=== PATIENT | female | born 1990 | race African-American/Black ===

== ENCOUNTER 2021-08-26 15:53 | Emergency (ER) | payer MEDICAID ==
[~2021-08-26] VITALS: Ht 167.6 cm; Wt 107.7 kg
[2021-08-26 15:56] VITALS: BP 118/76
--- NOTE | 2021-08-26 16:18 | NUR ---
LAB AT BEDSIDE
--- NOTE | 2021-08-26 16:20 | NUR ---
Mike ralph in [facility] - 08/26/21 at 1643 by ALEN ULTRASOUND AT BEDSIDE
[2021-08-26 16:22] LABS: BASOPHILS % (AUTO) 0.4 % (0.0-2.0); EOSINOPHILS # (AUTO) 0.1 K/uL (0-0.4); EOSINOPHILS % (AUTO) 1.4 % (0.0-4.0); HEMOGLOBIN 11.5 g/dL (12.0-16.0); LYMPHOCYTES # (AUTO) 1.6 K/uL (2.5-16.5); LYMPHOCYTES % (AUTO) 23.3 % (20.5-51.1); MEAN CORPUSCULAR HEMOGLOBIN 28 pg (27-31); MEAN CORPUSCULAR HGB CONC 33 g/dL (33-37); MEAN CORPUSCULAR VOLUME 85.1 fL (80-94); MONOCYTES # (AUTO) 0.4 K/uL (0.8-1.0); MONOCYTES % (AUTO) 5.2 % (1.7-9.3); NEUTROPHILS # (AUTO) 4.9 K/uL (1.8-7.7); NEUTROPHILS % (AUTO) 69.7 % (42.2-75.2); PLATELET COUNT (AUTO) 368 K/uL (140-450); RED BLOOD CELL COUNT(AUTO) 4.11 MIL/uL (4.20-5.40); RED CELL DISTRIBUTION WIDTH 15.2 % (11.6-13.7)
--- NOTE | 2021-08-26 16:22 | NUR ---
30 Y/O FEMALE BIB SELF DUE TO LOWER ABDOMINAL CRAMPING AND PAIN X3 DAYS ALONG WITH NAUSEA. PATIENTS PAIN IS 7/10. PATIENT IS CURRENTLY BUT IS UNSURE TO HOW MANY WEEKS SHE IS. MEDICAL HISTORY: DENIES NKDA
--- NOTE | 2021-08-26 16:40 | NUR ---
DR MENCHACA AT BEDSIDE EVALUATING PATIENT
[2021-08-26 17:00] LABS: APPEARANCE,URINE CLEAR (CLEAR); BILIRUBIN,URINE NEGATIVE (NEGATIVE); BLOOD, URINE NEGATIVE (NEGATIVE); COLOR,URINE YELLOW (YELLOW); LEUKOCYTE ESTERASE ,URINE NEGATIVE (NEGATIVE); NITRITE, URINE NEGATIVE (NEGATIVE); UGLUCOSE NEGATIVE (NEGATIVE)
--- NOTE | 2021-08-26 17:50 | NUR ---
The patient's care was reviewed and supervised by Ron Thrasher RN.
[2021-08-26] MEDS ORDERED: DOXY1TCP PO (18:04)
[2021-08-26 18:30] VITALS: BP 121/74
--- NOTE | 2021-08-26 18:49 | NUR ---
Patient discharged with v/s stable. Written and verbal after care instructions given and explained for Threatened Miscarriage. Patient alert, oriented and verbalized understanding of instructions. Ambulatory with steady gait. All questions addressed prior to discharge. ID band removed. Patient advised to follow up with PMD. Rx of DOXYLAMINE/PYRIDOXINE HCL given. Patient educated on indication of medication including possible reaction and side effects. Opportunity to ask questions provided and answered.
== END 2021-08-26 18:49 | disposition home or self-care (01) ==
LOC: MED 15:53
DX: O20.0 Threatened abortion (principal); O21.8 Other vomiting complicating pregnancy; Z3A.08 8 weeks gestation of pregnancy; Z79.899 Other long term (current) drug therapy; Z98.890 Other specified postprocedural states
CPT/HCPCS: 36415; 76817; 81003; 81025; 84702; 85025; 86900; 86901; 99284; Q0092

== ENCOUNTER 2021-08-27 15:49 | Emergency (ER) | payer MEDICAID ==
[~2021-08-27] VITALS: Ht 167.6 cm; Wt 105.2 kg
[~2021-08-27 15:49] MED LIST: DOXY1TCP PO
[2021-08-27 15:56] VITALS: BP 127/66
--- NOTE | 2021-08-27 16:00 | NUR ---
PATIENT WAITING OUTSIDE ER LOBBY.
--- NOTE | 2021-08-27 17:21 | NUR ---
Mike ralph in [facility] - 08/27/21 at 1722 by LUZ PT TO CHAIR Nelson
--- NOTE | 2021-08-27 17:22 | NUR ---
PATIENT AMBULATED TO BED 04.
--- NOTE | 2021-08-27 17:29 | NUR ---
urine handed to [employer] tech
[2021-08-27 17:43] LABS: BASOPHILS % (AUTO) 0.3 % (0.0-2.0); EOSINOPHILS # (AUTO) 0.1 K/uL (0-0.4); EOSINOPHILS % (AUTO) 0.9 % (0.0-4.0); HEMATOCRIT 36.1 % (36-48); HEMOGLOBIN 11.9 g/dL (12.0-16.0); LYMPHOCYTES # (AUTO) 1.4 K/uL (2.5-16.5); LYMPHOCYTES % (AUTO) 21.5 % (20.5-51.1); MEAN CORPUSCULAR HEMOGLOBIN 28 pg (27-31); MEAN CORPUSCULAR HGB CONC 33 g/dL (33-37); MEAN CORPUSCULAR VOLUME 84.2 fL (80-94); MONOCYTES # (AUTO) 0.6 K/uL (0.8-1.0); MONOCYTES % (AUTO) 8.6 % (1.7-9.3); NEUTROPHILS # (AUTO) 4.4 K/uL (1.8-7.7); NEUTROPHILS % (AUTO) 68.7 % (42.2-75.2); PLATELET COUNT (AUTO) 373 K/uL (140-450); RED BLOOD CELL COUNT(AUTO) 4.28 MIL/uL (4.20-5.40); RED CELL DISTRIBUTION WIDTH 15.4 % (11.6-13.7); WHITE BLOOD COUNT (AUTO) 6.5 K/uL (4.8-10.8)
[2021-08-27 17:46] LABS: APPEARANCE,URINE CLEAR (CLEAR); BILIRUBIN,URINE NEGATIVE (NEGATIVE); BLOOD, URINE 3+ (NEGATIVE); COLOR,URINE YELLOW (YELLOW); LEUKOCYTE ESTERASE ,URINE NEGATIVE (NEGATIVE); NITRITE, URINE NEGATIVE (NEGATIVE); UGLUCOSE NEGATIVE (NEGATIVE)
[2021-08-27 17:55] LABS: RBC,URINE 80-100 /HPF (0-5)
[2021-08-27 17:56] LABS: WBC,URINE NONE SEEN /HPF (0-5)
[2021-08-27 18:04] LABS: ALBUMIN 3.6 g/dL (3.4-5.0); ANION GAP 12.2 (8-16); CARBON DIOXIDE 25.3 mmol/L (21-32); POTASSIUM 3.5 mmol/L (3.5-5.1); TOTAL BILIRUBIN 0.3 mg/dL (0.0-1.0)
[2021-08-27 20:41] VITALS: BP 128/77
--- NOTE | 2021-08-27 20:42 | NUR ---
Patient discharged with v/s stable. Written and verbal after care instructions given and explained. Patient verbalized understanding. Ambulatory with steady gait. All questions addressed prior to discharge. Advised to follow up with PMD.
== END 2021-08-27 20:42 | disposition home or self-care (01) ==
LOC: MED 15:49
DX: O20.0 Threatened abortion (principal); Z79.899 Other long term (current) drug therapy; Z3A.01 Less than 8 weeks gestation of pregnancy
CPT/HCPCS: 36415; 76801; 80053; 81001; 81025; 84702; 85025; 86886; 86900; 86901; 99284; Q0092

== ENCOUNTER 2021-08-31 20:24 | Emergency (ER) | payer MEDICAID ==
[~2021-08-31] VITALS: Ht 167.6 cm; Wt 104.8 kg
[2021-08-31 20:35] VITALS: BP 129/71
--- NOTE | 2021-08-31 20:35 | NUR ---
30 Y/O FEMALE BIBS FROM HOME, C/O CRAMPING X1 DAY AND SPOTTING X4 DAYS. PT STATES SHE IS 5 WKS AND HAS 8/10 CRAMPING STARTING THIS MORNING. PT TOOK 1000MG TYLENOL FOR PAIN 6 HRS PRIOR TO ED ARRIVAL. +DIARRHEA AND FATIGUE. - N/V; UNLABORED BREATHING, AMBULATORY W/O ASSISTANCE, A/OX4, GCS-15. PT SEATED IN BED WITH HOB RAISED AND BED IN LOWEST POSITION WITH RAIL UP X1 DENIES PMH/RX NKA
--- NOTE | 2021-08-31 20:49 | NUR ---
URINE OBTAINED URINE PREG AND DIP DONE
[2021-08-31] MEDS ORDERED: IBUPROFEN 600 MG TAB PO ONE (21:30)
--- NOTE | 2021-08-31 21:38 | NUR ---
PT STATES PASSING CLOTS THIS AM. STATES WENT THROUGH 3 FULL PADS . ABD PAIN STILL 10/30. IBUPROFEN 800MG GIVEN.
[2021-08-31] MEDS ORDERED: IBUP-2213 PO (21:42)
[2021-08-31 21:54] VITALS: BP 129/71
== END 2021-08-31 21:54 | disposition home or self-care (01) ==
LOC: MED 20:24
DX: O03.9 Complete or unspecified spontaneous abortion without complication (principal)
CPT/HCPCS: 81002; 81025; 99282

== ENCOUNTER 2022-02-04 17:12 | Emergency (ER) | payer MEDICAID ==
[~2022-02-04] VITALS: Ht 167.6 cm; Wt 105.7 kg
[~2022-02-04 17:12] MED LIST changes: +IBUP-2213 PO
[2022-02-04 17:18] VITALS: BP 144/88
--- NOTE | 2022-02-04 17:40 | NUR ---
BIB SELF C/O 01/30 GENERALIZED ABDOMINAL PAIN, N/V/D X YESTERDAY.ABD SOFT,NO ENDERNESS. DENIES N/V/D; SKIN IS PINK/WARM/DRY; AAOX4 WITH EVEN AND STEADY GAIT; LUNGS CLEAR BL; HR EVEN AND REGULAR; PT DENIES ANY FEVER, CP, SOB, OR COUGH AT THIS TIME.
--- NOTE | 2022-02-04 18:53 | NUR ---
Dr. Jean examining patient.
--- NOTE | 2022-02-04 18:53 | NUR ---
Mike ralph in [facility] - 02/04/22 at 1854 by [facility] Patient being evaluated by DR BUSTOS at [facility].
[2022-02-04] MEDS ORDERED: NACL 0.9% 1,000 ML IV ONE (18:55)
[2022-02-04] MEDS ORDERED: ONDANSETRON 4 MG/2 ML VIAL IVP ONE (18:55)
[2022-02-04] MEDS ORDERED: KETOROLAC 30 MG/ML VIAL IVP ONE (18:55)
[2022-02-04] MEDS ORDERED: ONDA-188 SL (19:26)
--- NOTE | 2022-02-04 19:28 | NUR ---
PT REFUSED NS FLUIDS AND LABS. 22G IV CATH PLACED IN R HAND. IV IS PATENT. PT IS STILL REFUSING FLUIDS. ER MD AWARE. MEDS TO BE GIVEN PO
[2022-02-04] MEDS ORDERED: ONDANSETRON 4 MG ODT ONE (19:33)
[2022-02-04] MEDS ORDERED: ONDANSETRON 4 MG ODT PO ONE (19:35)
[2022-02-04 20:02] VITALS: BP 144/88
== END 2022-02-04 20:02 | disposition home or self-care (01) ==
LOC: MED 17:12
DX: R11.2 Nausea with vomiting, unspecified (principal); R19.7 Diarrhea, unspecified
CPT/HCPCS: 81002; 81025; 99283; Q0162